=== PATIENT | female | born 1950 | race Caucasian/White ===

== ENCOUNTER 2016-12-06 11:16 | Outpatient (CLI) | payer MEDICARE, OTHER ==
[2016-12-06 12:56] LABS: Cardiac Risk 4.7 (Less than 4.5)
== END 2016-12-06 11:17 | disposition home or self-care (01) ==
LOC: HPCALD 11:16
PROVIDERS: ATTEND Family Medicine
DX: E78.2 Mixed hyperlipidemia (principal); R74.8 Abnormal levels of other serum enzymes
CPT/HCPCS: 36415; 80061; 82550

== ENCOUNTER 2017-02-19 09:54 | Outpatient (CLI) | payer MEDICARE, OTHER ==
[2017-02-19 15:16] LABS: Cardiac Risk 3.9 (Less than 4.5)
== END 2017-02-19 09:55 ==
LOC: HPCALD 09:54
PROVIDERS: ATTEND Family Medicine
DX: E78.5 Hyperlipidemia, unspecified (principal); R74.8 Abnormal levels of other serum enzymes
CPT/HCPCS: 36415; 80061; 82550

== ENCOUNTER 2017-04-08 09:02 | Outpatient (CLI) | payer MEDICARE, OTHER ==
[2017-04-08 10:26] LABS: Cardiac Risk 4.1 (Less than 4.5)
== END 2017-04-08 09:03 | disposition home or self-care (01) ==
LOC: HPCALD 09:02
PROVIDERS: ATTEND Family Medicine
DX: E78.5 Hyperlipidemia, unspecified (principal)
CPT/HCPCS: 36415; 80061